=== PATIENT | female | born 1960 | race Caucasian/White ===

== ENCOUNTER → 2017-12-30 | Day surgery (SDC) | payer BC ==
[~2017-12-30] VITALS: Ht 160 cm; Wt 120.2 kg
[~2017-12-30] MED LIST: BD ULTRA-FINE PEN ND; FLEXERIL5 MG PO; GABAPENTIN600 MG PO; LANTUS SOL100 UNIT/1 SQ; LANTUS SOLOS100 U/M1 SC; METFORMIN HYD1000 MG PO; MOTRIN800 MG PO; PROZAC10 MG PO; ULTRAM50 MG PO; ZOCOR40 MG PO; [UNRECOGNIZED DRUG - SUPPLY]
[2017-12-30 07:14] VITALS: BP 177/87
[2017-12-30 08:32] VITALS: BP 118/65
[2017-12-30 08:48] VITALS: BP 136/76
[2017-12-30 09:03] VITALS: BP 150/81
== END | disposition home or self-care (01) ==
LOC: SDC 12-29 14:00
DX: D64.9 Anemia, unspecified (principal); E11.40 Type 2 diabetes mellitus with diabetic neuropathy, unspecified; E78.00 Pure hypercholesterolemia, unspecified; F32.9 Major depressive disorder, single episode, unspecified; Z98.890 Other specified postprocedural states; Z79.899 Other long term (current) drug therapy; E66.01 Morbid (severe) obesity due to excess calories; Z68.42 Body mass index [BMI] 45.0-49.9, adult; Z79.4 Long term (current) use of insulin

== ENCOUNTER → 2018-02-02 | Outpatient (CLI) | payer BC | END | disposition home or self-care (01) | LOC: US 10:10 | DX: R93.8 Abnormal findings on diagnostic imaging of other specified body structures (principal); N95.0 Postmenopausal bleeding ==

== ENCOUNTER → 2018-02-24 | Outpatient (CLI) | payer BC | END | disposition home or self-care (01) | LOC: RAD 10:26 | DX: E11.9 Type 2 diabetes mellitus without complications (principal); J18.9 Pneumonia, unspecified organism; R06.02 Shortness of breath; Z87.891 Personal history of nicotine dependence ==

== ENCOUNTER 2020-09-09 14:08 | Emergency (ER) | payer BC ==
[~2020-09-09] VITALS: Ht 160 cm; Wt 117.9 kg
[2020-09-09] MEDS ORDERED: CEPHALEXIN500 M1 PO (16:05)
[2020-09-09] MEDS ORDERED: DIFLUCAN150 MG PO (17:12)
== END 2020-09-09 17:20 | disposition home or self-care (01) ==
LOC: ED 14:08
DX: S62.634B Displaced fracture of distal phalanx of right ring finger, initial encounter for open fracture (principal); E11.42 Type 2 diabetes mellitus with diabetic polyneuropathy; E66.01 Morbid (severe) obesity due to excess calories; Z79.4 Long term (current) use of insulin; Z79.899 Other long term (current) drug therapy; W23.0XXA Caught, crushed, jammed, or pinched between moving objects, initial encounter; Y93.89 Activity, other specified; Y92.89 Other specified places as the place of occurrence of the external cause; Y99.8 Other external cause status

== ENCOUNTER → 2021-06-28 | Outpatient (CLI) | payer BC ==
[~2021-06-28] MED LIST changes: +CEPHALEXIN500 M1 PO; +DIFLUCAN150 MG PO
[2021-06-28 10:34] LABS: BILIRUBIN Negative (Negative); BLOOD Trace-Lysed (Negative); CLARITY Clear (Clear); COLOR Yellow (Yellow); GLUCOSE Negative (Negative); KETONE Negative (Negative); LEUKO ESTERASE Negative (Negative); NITRITE Negative (Negative); PH 5.5 (4.5-8.0); UROBILINOGEN 0.2 E.U./dl (0.0-1.0)
[2021-06-28 10:42] LABS: RBC 0-2 rbc/hpf (0-2)
[2021-06-28 10:43] LABS: BACTERIA 1+
[2021-06-28 10:45] LABS: CREATININE 1.17 mg/dL (0.55-1.02); POTASSIUM 4.9 mmol/L (3.5-5.1)
[2021-06-28 10:53] LABS: BASO % 0.5 % (0.0-1.0); EOS # 0.2 10*3/uL (0.0-0.4); EOS % 3.4 % (1.0-4.0); LYMPH # 1.5 10*3/uL (1.3-4.4); LYMPH % 22.6 % (27.0-41.0); MEAN CELL VOLUME 88.2 fl (81.0-99.0); MEAN CORPUSCULAR HGB 27.7 pg (27.0-31.0); MEAN CORPUSCULAR HGB CONC 31.4 g/dl (33.0-37.0); MEAN PLATELET VOLUME 10.4 fl (9.6-12.3); MONO # 0.5 10*3/uL (0.1-1.0); MONO % 7.5 % (3.0-9.0); NEUT # 4.3 10*3/uL (2.3-7.9); NEUT % 65.7 % (47.0-73.0); PLATELET COUNT AUTOMATED 215 10*3/uL (130-400); RED BLOOD COUNT 3.97 10*6/uL (4.10-5.10); RED CELL DISTRI WIDTH 13.5 % (0-14.5); WHITE BLOOD COUNT 6.5 10*3/uL (4.8-10.8)
[2021-06-28 11:12] LABS: VITAMIN D, 25-HYDROXY 38.7 ng/mL (30-100)
[2021-06-28 11:13] LABS: PTH INTACT 52.2 pg/mL (18.5-88.0)
== END | disposition home or self-care (01) ==
LOC: LAB 09:57
PROVIDERS: ATTEND Internal Medicine Nephrology
DX: E11.22 Type 2 diabetes mellitus with diabetic chronic kidney disease (principal); N18.31 Chronic kidney disease, stage 3a

== ENCOUNTER → 2021-07-27 | Outpatient (CLI) | payer BC | END | disposition home or self-care (01) | LOC: RAD 11:21 → LAB 11:21 | PROVIDERS: ATTEND Specialist | DX: Z01.818 Encounter for other preprocedural examination (principal) ==

== ENCOUNTER → 2022-02-16 | Outpatient (CLI) | payer BC ==
[2022-02-16 09:31] LABS: BASO % 0.4 % (0.0-1.0); EOS # 0.2 10*3/uL (0.0-0.4); EOS % 4.1 % (1.0-4.0); HEMATOCRIT 35.4 % (37.0-47.0); LYMPH # 1.6 10*3/uL (1.3-4.4); LYMPH % 29.4 % (27.0-41.0); MEAN CELL VOLUME 84.5 fl (81.0-99.0); MEAN CORPUSCULAR HGB CONC 31.9 g/dl (33.0-37.0); MEAN PLATELET VOLUME 9.6 fl (9.6-12.3); MONO # 0.4 10*3/uL (0.1-1.0); NEUT # 3.3 10*3/uL (2.3-7.9); NEUT % 58.7 % (47.0-73.0); PLATELET COUNT AUTOMATED 191 10*3/uL (130-400); RED BLOOD COUNT 4.19 10*6/uL (4.10-5.10); RED CELL DISTRI WIDTH 13.5 % (0-14.5); WHITE BLOOD COUNT 5.6 10*3/uL (4.8-10.8)
== END | disposition home or self-care (01) ==
LOC: LAB 09:13
PROVIDERS: ATTEND Nurse Practitioner Family
DX: D64.9 Anemia, unspecified (principal)

== ENCOUNTER → 2022-04-11 | Outpatient (CLI) | payer BC ==
[2022-04-11 13:02] LABS: BASO % 0.2 % (0.0-1.0); EOS # 0.2 10*3/uL (0.0-0.4); EOS % 2.7 % (1.0-4.0); LYMPH # 1.6 10*3/uL (1.3-4.4); LYMPH % 26.3 % (27.0-41.0); MEAN CELL VOLUME 86.5 fl (81.0-99.0); MEAN CORPUSCULAR HGB 27.6 pg (27.0-31.0); MEAN CORPUSCULAR HGB CONC 31.9 g/dl (33.0-37.0); MEAN PLATELET VOLUME 10.3 fl (9.6-12.3); MONO # 0.4 10*3/uL (0.1-1.0); MONO % 6.1 % (3.0-9.0); NEUT % 64.5 % (47.0-73.0); PLATELET COUNT AUTOMATED 205 10*3/uL (130-400); RED BLOOD COUNT 4.16 10*6/uL (4.10-5.10); RED CELL DISTRI WIDTH 13.6 % (0-14.5); WHITE BLOOD COUNT 6.2 10*3/uL (4.8-10.8)
[2022-04-11 13:02] LABS: BILIRUBIN Negative (Negative); BLOOD Negative (Negative); CLARITY Cloudy (Clear); COLOR Yellow (Yellow); GLUCOSE 2+ (Negative); KETONE Negative (Negative); LEUKO ESTERASE Negative (Negative); NITRITE Negative (Negative); UROBILINOGEN 0.2 E.U./dl (0.0-1.0)
[2022-04-11 13:15] LABS: CREATININE 1.25 mg/dL (0.55-1.02)
[2022-04-11 13:17] LABS: BACTERIA 2+; EPITHELIAL CELLS 21-30; WBC 16-20 wbc/hpf (0-5)
[2022-04-11 14:02] LABS: VITAMIN D, 25-HYDROXY 33.3 ng/mL (30-100)
== END | disposition home or self-care (01) ==
LOC: LAB 12:20
PROVIDERS: ATTEND Internal Medicine Nephrology
DX: E11.22 Type 2 diabetes mellitus with diabetic chronic kidney disease (principal); N18.31 Chronic kidney disease, stage 3a; E55.9 Vitamin D deficiency, unspecified; N25.81 Secondary hyperparathyroidism of renal origin

== ENCOUNTER → 2022-10-03 | Outpatient (CLI) | payer BC ==
[2022-10-03 12:47] LABS: BASO % 0.6 % (0.0-1.0); EOS # 0.7 10*3/uL (0.0-0.4); EOS % 9.3 % (1.0-4.0); HEMATOCRIT 36.9 % (37.0-47.0); LYMPH # 1.8 10*3/uL (1.3-4.4); MEAN CELL VOLUME 87.6 fl (81.0-99.0); MEAN CORPUSCULAR HGB 27.6 pg (27.0-31.0); MEAN CORPUSCULAR HGB CONC 31.4 g/dl (33.0-37.0); MEAN PLATELET VOLUME 9.3 fl (9.6-12.3); MONO # 0.3 10*3/uL (0.1-1.0); MONO % 4.4 % (3.0-9.0); NEUT # 4.2 10*3/uL (2.3-7.9); NEUT % 60.3 % (47.0-73.0); PLATELET COUNT AUTOMATED 229 10*3/uL (130-400); RED BLOOD COUNT 4.21 10*6/uL (4.10-5.10); RED CELL DISTRI WIDTH 13.9 % (0-14.5)
[2022-10-03 13:09] LABS: BILIRUBIN Negative (Negative); BLOOD Negative (Negative); CLARITY Clear (Clear); COLOR Yellow (Yellow); GLUCOSE 2+ (Negative); KETONE Negative (Negative); LEUKO ESTERASE Negative (Negative); NITRITE Negative (Negative); PH 5.5 (4.5-8.0); SPECIFIC GRAVITY 1.025 (1.001-1.030); UROBILINOGEN 0.2 E.U./dl (0.0-1.0)
[2022-10-03 13:14] LABS: URINE CREATININE RANDOM 84.4 mg/dL
[2022-10-03 13:16] LABS: BUN 25 mg/dl (9-23); CHLORIDE 104 mmol/L (98-107); POTASSIUM 4.2 mmol/L (3.4-5.1)
[2022-10-03 13:17] LABS: ALKALINE PHOSPHATASE 133 U/L (46-116); BUN 25 mg/dl (9-23); CHLORIDE 106 mmol/L (98-107); CHOLESTEROL 224 mg/dL (<200); LDL CHOLESTEROL 148 mg/dL (9-159); POTASSIUM 4.2 mmol/L (3.4-5.1); SGPT/ALT 34 U/L (10-49); TOTAL PROTEIN 6.9 gm/dL (6.0-8.0); TRIGLYCERIDES 98 mg/dl (<150)
[2022-10-03 13:33] LABS: BACTERIA 2+
[2022-10-03 13:54] LABS: VITAMIN D, 25-HYDROXY 46.9 ng/mL (30-100)
== END | disposition home or self-care (01) ==
LOC: LAB 12:20
PROVIDERS: Internal Medicine Nephrology; ATTEND Nurse Practitioner Family
DX: E11.65 Type 2 diabetes mellitus with hyperglycemia (principal); I10 Essential (primary) hypertension; E55.9 Vitamin D deficiency, unspecified

== ENCOUNTER → 2022-12-06 | Outpatient (CLI) | payer BC ==
[2022-12-06 08:09] LABS: BILIRUBIN Negative (Negative); BLOOD Trace-Lysed (Negative); CLARITY Cloudy (Clear); COLOR Yellow (Yellow); GLUCOSE Negative (Negative); KETONE Negative (Negative); LEUKO ESTERASE Trace (Negative); NITRITE Negative (Negative); PH 5.5 (4.5-8.0); UROBILINOGEN 0.2 E.U./dl (0.0-1.0)
[2022-12-06 08:55] LABS: WBC 16-20 wbc/hpf (0-5)
[2022-12-06 08:56] LABS: BACTERIA 4+; EPITHELIAL CELLS TNTC
[2022-12-06 09:00] LABS: TOTAL PROTEIN 7.1 gm/dL (6.0-8.0)
== END | disposition home or self-care (01) ==
LOC: LAB 07:32
PROVIDERS: ATTEND Internal Medicine
DX: E11.65 Type 2 diabetes mellitus with hyperglycemia (principal); E78.5 Hyperlipidemia, unspecified; E55.9 Vitamin D deficiency, unspecified

== ENCOUNTER → 2023-03-24 | Outpatient (CLI) | payer BC ==
[2023-03-24 09:49] LABS: BASO % 0.4 % (0.0-1.0); EOS # 0.3 10*3/uL (0.0-0.4); EOS % 3.9 % (1.0-4.0); HEMATOCRIT 34.4 % (37.0-47.0); LYMPH # 1.6 10*3/uL (1.3-4.4); LYMPH % 23.4 % (27.0-41.0); MEAN CELL VOLUME 83.9 fl (81.0-99.0); MEAN CORPUSCULAR HGB 27.3 pg (27.0-31.0); MEAN CORPUSCULAR HGB CONC 32.6 g/dl (33.0-37.0); MEAN PLATELET VOLUME 10.1 fl (9.6-12.3); MONO # 0.3 10*3/uL (0.1-1.0); MONO % 4.7 % (3.0-9.0); NEUT # 4.6 10*3/uL (2.3-7.9); NEUT % 67.3 % (47.0-73.0); PLATELET COUNT AUTOMATED 175 10*3/uL (130-400); RED CELL DISTRI WIDTH 13.2 % (0-14.5); WHITE BLOOD COUNT 6.9 10*3/uL (4.8-10.8)
[2023-03-24 10:35] LABS: POTASSIUM 4.8 mmol/L (3.4-5.1); TOTAL PROTEIN 7.1 gm/dL (6.0-8.0)
== END | disposition home or self-care (01) ==
LOC: LAB 09:30
PROVIDERS: ATTEND Nurse Practitioner Family
DX: I10 Essential (primary) hypertension (principal); E11.65 Type 2 diabetes mellitus with hyperglycemia; G62.9 Polyneuropathy, unspecified; E78.2 Mixed hyperlipidemia

== ENCOUNTER → 2023-04-11 | Outpatient (CLI) | payer BC ==
[2023-04-11 10:12] LABS: BILIRUBIN Negative (Negative); BLOOD Trace-Lysed (Negative); CLARITY Clear (Clear); COLOR Yellow (Yellow); GLUCOSE Negative (Negative); KETONE Negative (Negative); LEUKO ESTERASE Negative (Negative); NITRITE Negative (Negative); PH 5.5 (4.5-8.0); SPECIFIC GRAVITY 1.015 (1.001-1.030); UROBILINOGEN 0.2 E.U./dl (0.0-1.0)
[2023-04-11 10:20] LABS: BACTERIA 4+; EPITHELIAL CELLS TNTC
[2023-04-11 10:21] LABS: RBC 0-2 rbc/hpf (0-2)
[2023-04-11 10:40] LABS: TOTAL PROTEIN 6.8 gm/dL (6.0-8.0)
== END | disposition home or self-care (01) ==
LOC: LAB 09:08
PROVIDERS: Internal Medicine; ATTEND Internal Medicine Nephrology
DX: E11.65 Type 2 diabetes mellitus with hyperglycemia (principal); E55.9 Vitamin D deficiency, unspecified; E34.9 Endocrine disorder, unspecified; E78.5 Hyperlipidemia, unspecified

== ENCOUNTER → 2023-05-26 | Outpatient (CLI) | payer BC | END | disposition home or self-care (01) | LOC: LAB 08:07 | PROVIDERS: ATTEND Internal Medicine | DX: E34.9 Endocrine disorder, unspecified (principal) ==

== ENCOUNTER → 2023-07-01 | Outpatient (CLI) | payer BC ==
[2023-07-01 07:47] LABS: BASO % 0.3 % (0.0-1.0); EOS # 0.2 10*3/uL (0.0-0.4); EOS % 2.4 % (1.0-4.0); HEMATOCRIT 35.6 % (37.0-47.0); LYMPH # 1.4 10*3/uL (1.3-4.4); LYMPH % 21.7 % (27.0-41.0); MEAN CELL VOLUME 85.2 fl (81.0-99.0); MEAN CORPUSCULAR HGB 27.5 pg (27.0-31.0); MEAN CORPUSCULAR HGB CONC 32.3 g/dl (33.0-37.0); MEAN PLATELET VOLUME 10.2 fl (9.6-12.3); MONO # 0.5 10*3/uL (0.1-1.0); MONO % 8.1 % (3.0-9.0); NEUT # 4.4 10*3/uL (2.3-7.9); NEUT % 67.2 % (47.0-73.0); PLATELET COUNT AUTOMATED 189 10*3/uL (130-400); RED BLOOD COUNT 4.18 10*6/uL (4.10-5.10); RED CELL DISTRI WIDTH 13.3 % (0-14.5); WHITE BLOOD COUNT 6.5 10*3/uL (4.8-10.8)
[2023-07-01 08:12] LABS: POTASSIUM 4.7 mmol/L (3.4-5.1); TOTAL PROTEIN 7.2 gm/dL (6.0-8.0)
== END | disposition home or self-care (01) ==
LOC: LAB 07:26
PROVIDERS: Nurse Practitioner Family; ATTEND Internal Medicine
DX: I10 Essential (primary) hypertension (principal); E11.65 Type 2 diabetes mellitus with hyperglycemia; G62.89 Other specified polyneuropathies; E78.2 Mixed hyperlipidemia; E34.9 Endocrine disorder, unspecified

== ENCOUNTER → 2023-10-25 | Outpatient (CLI) | payer BC ==
[2023-10-25 11:01] LABS: BASO % 0.3 % (0.0-1.0); EOS # 0.2 10*3/uL (0.0-0.4); EOS % 3.9 % (1.0-4.0); HEMATOCRIT 34.5 % (37.0-47.0); LYMPH # 1.6 10*3/uL (1.3-4.4); LYMPH % 26.6 % (27.0-41.0); MEAN CELL VOLUME 85.2 fl (81.0-99.0); MEAN CORPUSCULAR HGB 27.9 pg (27.0-31.0); MEAN CORPUSCULAR HGB CONC 32.8 g/dl (33.0-37.0); MEAN PLATELET VOLUME 9.6 fl (9.6-12.3); MONO # 0.4 10*3/uL (0.1-1.0); MONO % 5.7 % (3.0-9.0); NEUT # 3.8 10*3/uL (2.3-7.9); NEUT % 62.7 % (47.0-73.0); PLATELET COUNT AUTOMATED 169 10*3/uL (130-400); RED BLOOD COUNT 4.05 10*6/uL (4.10-5.10); RED CELL DISTRI WIDTH 13.3 % (0-14.5); WHITE BLOOD COUNT 6.1 10*3/uL (4.8-10.8)
[2023-10-25 11:13] LABS: BILIRUBIN Negative (Negative); BLOOD Trace-Lysed (Negative); CLARITY Clear (Clear); COLOR Yellow (Yellow); GLUCOSE 3+ (Negative); KETONE 1+ (Negative); LEUKO ESTERASE Negative (Negative); NITRITE Negative (Negative); PH 6.5 (4.5-8.0); SPECIFIC GRAVITY >= 1.030 (1.001-1.030); UROBILINOGEN 0.2 E.U./dl (0.0-1.0)
[2023-10-25 11:20] LABS: URINE CREATININE RANDOM 33.27 mg/dL
[2023-10-25 11:29] LABS: EPITHELIAL CELLS 16-20
[2023-10-25 11:30] LABS: BACTERIA 2+; BUN 18 mg/dl (9-23); CHLORIDE 100 mmol/L (98-107); POTASSIUM 4.7 mmol/L (3.4-5.1)
[2023-10-25 12:12] LABS: VITAMIN D, 25-HYDROXY 36.1 ng/mL (30-100)
[2023-10-26 08:07] LABS: HEMOGOLBIN A1C >15.5 % (4.8-5.6)
== END | disposition home or self-care (01) ==
LOC: LAB 10:21
PROVIDERS: ATTEND Nurse Practitioner Family
DX: E11.22 Type 2 diabetes mellitus with diabetic chronic kidney disease (principal); N18.30 Chronic kidney disease, stage 3 unspecified; D63.1 Anemia in chronic kidney disease; N25.81 Secondary hyperparathyroidism of renal origin

== ENCOUNTER 2023-11-10 12:48 | Emergency (ER) | payer BC ==
[~2023-11-10] VITALS: Ht 160 cm; Wt 124.3 kg
[2023-11-10 13:44] LABS: BASO % 0.5 % (0.0-1.0); EOS # 0.2 10*3/uL (0.0-0.4); EOS % 3.2 % (1.0-4.0); HEMATOCRIT 32.9 % (37.0-47.0); LYMPH # 1.2 10*3/uL (1.3-4.4); MEAN CELL VOLUME 84.8 fl (81.0-99.0); MEAN CORPUSCULAR HGB 27.6 pg (27.0-31.0); MEAN CORPUSCULAR HGB CONC 32.5 g/dl (33.0-37.0); MEAN PLATELET VOLUME 9.8 fl (9.6-12.3); MONO # 0.4 10*3/uL (0.1-1.0); MONO % 6.8 % (3.0-9.0); NEUT # 3.8 10*3/uL (2.3-7.9); NEUT % 67.3 % (47.0-73.0); PLATELET COUNT AUTOMATED 167 10*3/uL (130-400); RED BLOOD COUNT 3.88 10*6/uL (4.10-5.10); RED CELL DISTRI WIDTH 13.2 % (0-14.5); WHITE BLOOD COUNT 5.6 10*3/uL (4.8-10.8)
[2023-11-10 14:15] LABS: POTASSIUM 4.2 mmol/L (3.4-5.1); TOTAL PROTEIN 6.6 gm/dL (6.0-8.0)
[2023-11-10] MEDS ORDERED: INSULIN REGULAR, HUMAN 1 UNIT/0.01 ML SC ONE (14:30)
[2023-11-10] MEDS ORDERED: CEPHALEXIN500 M1 PO (15:22)
[2023-11-10] MEDS ORDERED: FLUONAZOLE150 M1 PO (18:01)
== END 2023-11-10 15:29 | disposition home or self-care (01) ==
LOC: ED 12:48
PROVIDERS: Physician Assistant Medical
DX: G58.9 Mononeuropathy, unspecified (principal); L03.116 Cellulitis of left lower limb; E11.65 Type 2 diabetes mellitus with hyperglycemia; E11.40 Type 2 diabetes mellitus with diabetic neuropathy, unspecified; Z98.890 Other specified postprocedural states

== ENCOUNTER → 2023-12-24 | Outpatient (CLI) | payer BC ==
[~2023-12-24] MED LIST changes: +FLUONAZOLE150 M1 PO; +GADOTERATE MEGLUMINE 5 MMOL/10 ML VIAL IV ONE; +GADOTERATE MEGLUMINE 7.5 MMOL/15 ML VIAL IV ONE
== END | disposition home or self-care (01) ==
LOC: MRI 00:55 → LAB 00:55 → MRI 09:00
PROVIDERS: ATTEND Nurse Practitioner Family
DX: Z01.818 Encounter for other preprocedural examination (principal); M21.372 Foot drop, left foot; E11.65 Type 2 diabetes mellitus with hyperglycemia; I10 Essential (primary) hypertension; E11.40 Type 2 diabetes mellitus with diabetic neuropathy, unspecified; R51.9 Headache, unspecified; H53.8 Other visual disturbances

== ENCOUNTER → 2024-03-01 | Outpatient (CLI) | payer BC ==
[~2024-03-01] MED LIST changes: -GADOTERATE MEGLUMINE 5 MMOL/10 ML VIAL IV ONE; -GADOTERATE MEGLUMINE 7.5 MMOL/15 ML VIAL IV ONE
[2024-03-01 08:00] LABS: BASO % 0.3 % (0.0-1.0); EOS # 0.3 10*3/uL (0.0-0.4); EOS % 4.5 % (1.0-4.0); HEMATOCRIT 36.5 % (37.0-47.0); LYMPH # 1.4 10*3/uL (1.3-4.4); LYMPH % 24.4 % (27.0-41.0); MEAN CELL VOLUME 88.8 fl (81.0-99.0); MEAN CORPUSCULAR HGB 27.7 pg (27.0-31.0); MEAN CORPUSCULAR HGB CONC 31.2 g/dl (33.0-37.0); MEAN PLATELET VOLUME 9.6 fl (9.6-12.3); MONO # 0.4 10*3/uL (0.1-1.0); MONO % 7.7 % (3.0-9.0); NEUT # 3.6 10*3/uL (2.3-7.9); NEUT % 62.8 % (47.0-73.0); PLATELET COUNT AUTOMATED 162 10*3/uL (130-400); RED BLOOD COUNT 4.11 10*6/uL (4.10-5.10); RED CELL DISTRI WIDTH 13.4 % (0-14.5); WHITE BLOOD COUNT 5.7 10*3/uL (4.8-10.8)
[2024-03-01 08:28] LABS: TOTAL PROTEIN 6.9 gm/dL (6.0-8.0)
== END | disposition home or self-care (01) ==
LOC: LAB 07:42
PROVIDERS: ATTEND Psychiatry & Neurology Neurology
DX: I63.9 Cerebral infarction, unspecified (principal)

== ENCOUNTER → 2024-03-31 | Outpatient (CLI) | payer BC ==
[2024-03-31 08:50] LABS: BASO % 0.3 % (0.0-1.0); EOS # 0.2 10*3/uL (0.0-0.4); EOS % 4.1 % (1.0-4.0); LYMPH # 1.7 10*3/uL (1.3-4.4); LYMPH % 28.2 % (27.0-41.0); MEAN CELL VOLUME 84.3 fl (81.0-99.0); MEAN CORPUSCULAR HGB 28.2 pg (27.0-31.0); MEAN CORPUSCULAR HGB CONC 33.4 g/dl (33.0-37.0); MEAN PLATELET VOLUME 10.3 fl (9.6-12.3); MONO # 0.4 10*3/uL (0.1-1.0); MONO % 6.2 % (3.0-9.0); NEUT # 3.6 10*3/uL (2.3-7.9); NEUT % 60.9 % (47.0-73.0); PLATELET COUNT AUTOMATED 189 10*3/uL (130-400); RED BLOOD COUNT 4.15 10*6/uL (4.10-5.10); RED CELL DISTRI WIDTH 12.9 % (0-14.5); WHITE BLOOD COUNT 5.9 10*3/uL (4.8-10.8)
[2024-03-31 09:05] LABS: URINE CREATININE RANDOM 23.56 mg/dL
[2024-03-31 09:40] LABS: POTASSIUM 4.2 mmol/L (3.4-5.1); TOTAL PROTEIN 6.8 gm/dL (6.0-8.0)
[2024-04-01 02:07] LABS: HEMOGOLBIN A1C 15.4 % (4.8-5.6)
== END | disposition home or self-care (01) ==
LOC: LAB 08:20
PROVIDERS: ATTEND Nurse Practitioner Family
DX: E11.65 Type 2 diabetes mellitus with hyperglycemia (principal); G62.9 Polyneuropathy, unspecified; I10 Essential (primary) hypertension

== ENCOUNTER → 2024-05-05 | Outpatient (CLI) | payer BC ==
[2024-05-05 17:00] LABS: BASO % 0.5 % (0.0-1.0); EOS # 0.2 10*3/uL (0.0-0.4); EOS % 3.7 % (1.0-4.0); HEMATOCRIT 36.1 % (37.0-47.0); LYMPH # 1.5 10*3/uL (1.3-4.4); LYMPH % 23.7 % (27.0-41.0); MEAN CELL VOLUME 84.9 fl (81.0-99.0); MEAN PLATELET VOLUME 10.7 fl (9.6-12.3); MONO # 0.3 10*3/uL (0.1-1.0); MONO % 4.8 % (3.0-9.0); NEUT # 4.3 10*3/uL (2.3-7.9); NEUT % 66.8 % (47.0-73.0); PLATELET COUNT AUTOMATED 212 10*3/uL (130-400); RED BLOOD COUNT 4.25 10*6/uL (4.10-5.10); RED CELL DISTRI WIDTH 12.9 % (0-14.5); WHITE BLOOD COUNT 6.5 10*3/uL (4.8-10.8)
[2024-05-05 17:08] LABS: BILIRUBIN Negative (Negative); BLOOD 1+ (Negative); CLARITY Clear (Clear); COLOR Yellow (Yellow); GLUCOSE 3+ (Negative); KETONE 1+ (Negative); LEUKO ESTERASE Negative (Negative); NITRITE Negative (Negative); PH 5.5 (4.5-8.0); SPECIFIC GRAVITY >= 1.030 (1.001-1.030); UROBILINOGEN 0.2 E.U./dl (0.0-1.0)
[2024-05-05 17:14] LABS: BACTERIA 1+; MUCOUS 1+; RBC 16-20 rbc/hpf (0-2)
[2024-05-05 17:16] LABS: URINE CREATININE RANDOM 29.16 mg/dL
[2024-05-05 17:28] LABS: VITAMIN D, 25-HYDROXY 44.4 ng/mL (30-100)
[2024-05-05 17:31] LABS: POTASSIUM 4.3 mmol/L (3.4-5.1)
[2024-05-06 11:08] LABS: HEMOGOLBIN A1C >15.5 % (4.8-5.6)
== END | disposition home or self-care (01) ==
LOC: LAB 16:19
PROVIDERS: ATTEND Nurse Practitioner Family
DX: E11.22 Type 2 diabetes mellitus with diabetic chronic kidney disease (principal); N18.32 Chronic kidney disease, stage 3b; N25.81 Secondary hyperparathyroidism of renal origin; D63.1 Anemia in chronic kidney disease

== ENCOUNTER → 2024-10-26 | Outpatient (CLI) | payer BC ==
[2024-10-26 10:29] LABS: BASO % 0.4 % (0.0-1.0); EOS # 0.3 10*3/uL (0.0-0.4); EOS % 3.7 % (1.0-4.0); HEMATOCRIT 35.9 % (37.0-47.0); MEAN CELL VOLUME 86.5 fl (81.0-99.0); MEAN CORPUSCULAR HGB 26.5 pg (27.0-31.0); MEAN CORPUSCULAR HGB CONC 30.6 g/dl (33.0-37.0); MEAN PLATELET VOLUME 9.7 fl (9.6-12.3); MONO # 0.5 10*3/uL (0.1-1.0); MONO % 6.7 % (3.0-9.0); NEUT # 4.5 10*3/uL (2.3-7.9); NEUT % 62.3 % (47.0-73.0); PLATELET COUNT AUTOMATED 218 10*3/uL (130-400); RED BLOOD COUNT 4.15 10*6/uL (4.10-5.10); WHITE BLOOD COUNT 7.3 10*3/uL (4.8-10.8)
[2024-10-26 10:34] LABS: BILIRUBIN Negative (Negative); BLOOD Trace-Lysed (Negative); CLARITY Cloudy (Clear); COLOR Yellow (Yellow); GLUCOSE Negative (Negative); KETONE Negative (Negative); LEUKO ESTERASE 1+ (Negative); NITRITE Negative (Negative); UROBILINOGEN 0.2 E.U./dl (0.0-1.0)
[2024-10-26 10:50] LABS: BACTERIA 2+; WBC 16-20 wbc/hpf (0-5)
[2024-10-26 11:07] LABS: POTASSIUM 4.9 mmol/L (3.4-5.1)
[2024-10-26 11:10] LABS: VITAMIN D, 25-HYDROXY 39.7 ng/mL (30-100)
== END | disposition home or self-care (01) ==
LOC: LAB 09:49
PROVIDERS: ATTEND Nurse Practitioner Family
DX: N25.81 Secondary hyperparathyroidism of renal origin (principal); R80.9 Proteinuria, unspecified; E55.9 Vitamin D deficiency, unspecified; N18.30 Chronic kidney disease, stage 3 unspecified; D63.1 Anemia in chronic kidney disease

== ENCOUNTER → 2024-11-24 | Outpatient (CLI) | payer BC ==
[2024-11-24 16:49] LABS: POTASSIUM 4.6 mmol/L (3.4-5.1)
== END | disposition home or self-care (01) ==
LOC: LAB 08:40
PROVIDERS: ATTEND Nurse Practitioner Family
DX: E11.65 Type 2 diabetes mellitus with hyperglycemia (principal); G62.89 Other specified polyneuropathies; E78.2 Mixed hyperlipidemia; I10 Essential (primary) hypertension; E55.9 Vitamin D deficiency, unspecified

== ENCOUNTER → 2025-02-25 | Outpatient (CLI) | payer BC ==
[2025-02-25 09:48] LABS: BILIRUBIN Negative (Negative); BLOOD Trace-Lysed (Negative); CLARITY Cloudy (Clear); COLOR Yellow (Yellow); KETONE Negative (Negative); LEUKO ESTERASE Trace (Negative); NITRITE Negative (Negative); PH 5.5 (4.5-8.0); SPECIFIC GRAVITY 1.015 (1.001-1.030); UROBILINOGEN 0.2 E.U./dl (0.0-1.0)
[2025-02-25 09:56] LABS: BUN 37.0 mg/dl (9-23)
[2025-02-25 10:20] LABS: BACTERIA 3+; MUCOUS TRACE
[2025-02-25 18:09] LABS: BASO # 0.0 10*3/uL (0.0-0.1); BASO % 0.4 % (0.0-1.0); EOS # 0.3 10*3/uL (0.0-0.4); EOS % 3.5 % (1.0-4.0); MEAN CELL VOLUME 89.7 fl (81.0-99.0); MEAN CORPUSCULAR HGB 27.4 pg (27.0-31.0); MEAN PLATELET VOLUME 10.5 fl (9.6-12.3); MONO # 0.5 10*3/uL (0.1-1.0); MONO % 6.6 % (3.0-9.0); NEUT # 5.3 10*3/uL (2.3-7.9); NEUT % 67.4 % (47.0-73.0); NUCLEATED RED BLOOD CELL 0.0 % (0.0-0.0); NUCLEATED RED BLOOD CELL 0.0 10*3/uL (0.0-0.0); PLATELET COUNT AUTOMATED 244 10*3/uL (130-400); RED CELL DISTRI WIDTH 13.9 % (0-14.5)
[2025-02-25 18:26] LABS: BUN 36.0 mg/dl (9-23); SGPT/ALT 20.0 U/L (5-49)
== END | disposition home or self-care (01) ==
LOC: LAB 08:52
PROVIDERS: Nurse Practitioner Family; ATTEND Nurse Practitioner Family
DX: N18.30 Chronic kidney disease, stage 3 unspecified (principal); R80.9 Proteinuria, unspecified